=== PATIENT | female | born 1940 | race Caucasian/White ===

== ENCOUNTER 2022-07-31 12:09 | Outpatient (CLI) | payer MEDICARE | END 2022-07-31 12:10 | disposition home or self-care (01) | LOC: SCSMRI 12:09 | PROVIDERS: ATTEND Family Medicine | DX: M41.34 Thoracogenic scoliosis, thoracic region (principal); M48.061 Spinal stenosis, lumbar region without neurogenic claudication; M48.07 Spinal stenosis, lumbosacral region; M48.05 Spinal stenosis, thoracolumbar region; M51.16 Intervertebral disc disorders with radiculopathy, lumbar region; M47.26 Other spondylosis with radiculopathy, lumbar region; M51.34 Other intervertebral disc degeneration, thoracic region; M47.814 Spondylosis without myelopathy or radiculopathy, thoracic region; G95.19 Other vascular myelopathies | CPT/HCPCS: 72146; 72148 ==